=== PATIENT | female | born 1965 | race Caucasian/White ===

== ENCOUNTER 2024-05-17 10:27 | Emergency (ER) | payer OTHER ==
[~2024-05-17] VITALS: Ht 165.1 cm; Wt 72.7 kg
[2024-05-17 10:33] VITALS: TEMP 98.4
[2024-05-17] MEDS ORDERED: GABA-1181 PO ×2 (10:37)
[2024-05-17] MEDS ORDERED: BUPR-514 PO (10:37)
[2024-05-17] MEDS ORDERED: PANT-31 PO ×2 (10:37)
[2024-05-17] MEDS ORDERED: MELO-107 PO (10:37)
[2024-05-17] MEDS: LIDOCAINE 5% TRANSDERMAL PATCH TD ONE (12:11)
[2024-05-17] MEDS: IBUPROFEN 600 MG TABLET PO ONE (12:11)
[2024-05-17 12:45] VITALS: BP 136/62; PULSE 81; RESP 18; O2SAT 100
[2024-05-17] MEDS ORDERED: TRAM50TA5 PO (12:52)
== END 2024-05-17 12:59 | disposition home or self-care (01) ==
LOC: EMS 10:27
DX: M75.92 Shoulder lesion, unspecified, left shoulder (principal); F32.A Depression, unspecified; Z90.49 Acquired absence of other specified parts of digestive tract; Z90.89 Acquired absence of other organs; Z98.890 Other specified postprocedural states
CPT/HCPCS: 99283

== ENCOUNTER 2025-02-27 12:44 | Emergency (ER) | payer OTHER ==
[~2025-02-27] VITALS: Ht 165.1 cm; Wt 72.7 kg
[~2025-02-27 12:44] MED LIST: BUPR-50 PO; GABA-1181 PO; MELO-107 PO; PANT-31 PO; TRAM50TA5 PO
[2025-02-27 12:57] VITALS: TEMP 98.2
[2025-02-27 13:25] LABS: PLATELET COUNT (AUTO) 360 K/uL (150-450); RBC MORPHOLOGY COMMENT ABNORMAL RBC MORPH; RED BLOOD CELL COUNT(AUTO) 3.73 MIL/uL (4.00-5.20); RED CELL DISTRIBUTION WIDTH 17.6 % (11.5-14.5); WHITE BLOOD COUNT (AUTO) 7.2 K/uL (4.5-11.0)
[2025-02-27 13:29] LABS: CALCIUM, TOTAL 8.7 mg/dL (8.8-10.5); CREATININE 0.90 mg/dL (0.60-1.30); GLOMERULAR FILTR. RATE CALC > 60 mL/min (>60); GLUCOSE,RANDOM 85 mg/dL (70-110); SODIUM SERUM 137 mmol/L (136-145); UREA NITROGEN, BLOOD 12 mg/dL (7-18)
[2025-02-27 13:35] LABS: CREATINE KINASE, TOTAL ONLY 42 U/L (26-192)
[2025-02-27 13:39] LABS: TROPONIN I-HIGH SENSITIVITY 146 ng/L (<51)
[2025-02-27 14:34] LABS: TROPONIN I-HIGH SENSITIVITY 139 ng/L (<51)
[2025-02-27] MEDS: CefTRIAXone 1 GM/DEXTROSE 50 ML IV ONE (14:43)
[2025-02-27 15:37] VITALS: BP 136/62
[2025-02-27 16:30] VITALS: PULSE 90; RESP 16; O2SAT 98
[2025-02-27] MEDS: ALBUTEROL SULFATE HFA 90 MCG/PUFF 8 GM INHALER IH ONE (16:30)
[2025-02-27] MEDS ORDERED: IBUP-1492 PO (16:39)
[2025-02-27] MEDS ORDERED: AMOX1TAB15 PO (16:39)
[2025-02-27] MEDS ORDERED: AZIT250T9 PO (16:39)
== END 2025-02-27 18:25 | disposition home or self-care (01) ==
LOC: EMS 12:44
DX: J18.9 Pneumonia, unspecified organism (principal); F32.A Depression, unspecified; D64.9 Anemia, unspecified; R06.02 Shortness of breath; Z90.89 Acquired absence of other organs; Z90.49 Acquired absence of other specified parts of digestive tract; Z79.899 Other long term (current) drug therapy
CPT/HCPCS: 99285; 96365; 71045; 80048; 82550; 83880; 84484; 85025; 85610; 85730; 36415; 94640; 93005; J0696; J3535

== ENCOUNTER 2025-03-13 13:13 | Emergency (ER) | payer OTHER ==
[~2025-03-13] VITALS: Ht 165.1 cm; Wt 72.7 kg
[~2025-03-13 13:13] MED LIST changes: +AMOX1TAB15 PO; +IBUP-1492 PO
[2025-03-13 14:11] LABS: PLATELET COUNT (AUTO) 387 K/uL (150-450); RED BLOOD CELL COUNT(AUTO) 3.60 MIL/uL (4.00-5.20); RED CELL DISTRIBUTION WIDTH 17.5 % (11.5-14.5); WHITE BLOOD COUNT (AUTO) 3.0 K/uL (4.5-11.0)
[2025-03-13 14:17] LABS: CALCIUM, TOTAL 9.6 mg/dL (8.8-10.5); CREATININE 1.09 mg/dL (0.60-1.30); GLOMERULAR FILTR. RATE CALC 51.0 mL/min (>60); GLUCOSE,RANDOM 85.0 mg/dL (70-110); SODIUM SERUM 140.0 mmol/L (136-145); UREA NITROGEN, BLOOD 17.0 mg/dL (7-18)
[2025-03-13 14:21] LABS: ASPARTATE AMINOTRANSFERASE 72.0 U/L (15-37); TOTAL PROTEIN, SERUM 7.0 g/dL (6.4-8.2)
[2025-03-13 14:24] LABS: TROPONIN I-HIGH SENSITIVITY 11 ng/L (<51)
[2025-03-13 14:47] LABS: RBC MORPHOLOGY COMMENT ABNORMAL RBC MORPH
[2025-03-13 16:12] VITALS: BP 122/81; PULSE 97; RESP 19; TEMP 97.5; O2SAT 97
[2025-03-13 16:30] LABS: APPEARANCE,URINE CLEAR (CLEAR); GLUCOSE, URINE (UA) NEGATIVE (NEGATIVE); LEUKOCYTE ESTERASE ,URINE NEGATIVE (NEGATIVE); NITRATE,URINE NEGATIVE (NEGATIVE); OCCULT BLOOD,URINE NEGATIVE (NEGATIVE); SPECIFIC GRAVITIY, URINE 1.015 (1.003-1.030)
== END 2025-03-13 16:52 | disposition home or self-care (01) ==
LOC: EMS 13:13
DX: R53.83 Other fatigue (principal); D50.0 Iron deficiency anemia secondary to blood loss (chronic); F32.A Depression, unspecified; R06.02 Shortness of breath; Z79.899 Other long term (current) drug therapy; Z90.49 Acquired absence of other specified parts of digestive tract; Z90.89 Acquired absence of other organs
CPT/HCPCS: 80053; 81003; 83880; 84484; 85025; 85610; 85730; 86850; 86900; 86901; 93005; 99284

== ENCOUNTER → 2025-04-07 | Day surgery (SDC) | payer OTHER ==
[~2025-04-07] VITALS: Ht 165.1 cm; Wt 72.7 kg
[~2025-04-07] MED LIST changes: -AMOX1TAB15 PO; -IBUP-1492 PO; +PROPOFOL 1% 20 ML VIAL IVP ONE; +SODIUM CHLORIDE 0.9% 1,000 ML ONE; -TRAM50TA5 PO
[2025-04-07] MEDS: SODIUM CHLORIDE 0.9% 1,000 ML IV ONE (07:12)
== END | disposition home or self-care (01) ==
LOC: SURGERY 06:20
PROVIDERS: ATTEND Internal Medicine
DX: D50.9 Iron deficiency anemia, unspecified (principal); D12.5 Benign neoplasm of sigmoid colon; K64.8 Other hemorrhoids; K62.1 Rectal polyp; K57.30 Diverticulosis of large intestine without perforation or abscess without bleeding; K22.10 Ulcer of esophagus without bleeding; K44.9 Diaphragmatic hernia without obstruction or gangrene; K21.9 Gastro-esophageal reflux disease without esophagitis; K29.70 Gastritis, unspecified, without bleeding; F32.A Depression, unspecified; M19.90 Unspecified osteoarthritis, unspecified site; Z98.49 Cataract extraction status, unspecified eye; Z87.891 Personal history of nicotine dependence; Z90.49 Acquired absence of other specified parts of digestive tract
CPT/HCPCS: 45380; 45385; 43239; 88305; C1769; J2704; J7030